=== PATIENT | female | born 1995 | race Caucasian/White ===

== ENCOUNTER 2023-08-15 13:30 | Emergency (ER) | payer MEDICAID ==
[~2023-08-15] VITALS: Ht 157.5 cm; Wt 52.7 kg
[2023-08-15 13:53] VITALS: TEMP 98.3
[2023-08-15 14:26] LABS: BILIRUBIN,URINE NEGATIVE (Neg); CLARITY,URINE CLEAR (Clear); COLOR,URINE YELLOW (Yellow); GLUCOSE, URINE NEGATIVE (Neg); KETONES,URINE NEGATIVE (Neg); LEUKOCYTE ESTERASE ,URINE NEGATIVE (Neg); NITRITES, URINE NEGATIVE (Neg); OCCULT BLOOD,URINE NEGATIVE (Neg); PROTEIN,URINE NEGATIVE (Neg); UROBILINOGEN,URINE 0.2 E.U/dL (0.2-1.0)
[2023-08-15 14:30] LABS: URINE HCG NEGATIVE (NEG)
[2023-08-15 14:31] LABS: BASOPHILS # (AUTO) 0.1 X10'3 (0-0.2); BASOPHILS % (AUTO) 0.8 % (0-1); EOSINOPHILS # (AUTO) 0.7 X10'3 (0-0.9); EOSINOPHILS % (AUTO) 8.1 % (0-6); HEMATOCRIT 43.4 % (35.0-45.0); HEMOGLOBIN 14.5 g/dl (12.0-16.0); LYMPHOCYTES # (AUTO) 2.7 X10'3 (1.1-4.8); LYMPHOCYTES % (AUTO) 32.8 % (21-51); MEAN CORPUSCULAR HEMOGLOBIN 27.3 PG (27.0-31.0); MEAN CORPUSCULAR HGB CONC 33.3 g/dL (33.0-36.5); MEAN PLATELET VOLUME 7.5 FL (7.4-10.4); MONOCYTES # (AUTO) 0.6 X10'3 (0-0.9); NEUTROPHILS # (AUTO) 4.1 X10'3 (1.8-7.7); NEUTROPHILS % (AUTO) 50.3 % (42-75); PLATELET COUNT 249 X10'3 (140-440); RED BLOOD COUNT 5.29 X10'6 (4.20-5.60); RED CELL DISTRIBUTION WIDTH 13.6 % (11.5-14.5); WHITE BLOOD COUNT 8.1 X10'3 (4.5-11.0)
[2023-08-15 14:32] LABS: UA COLLECTION TYPE CLN CATCH MIDSTREAM
[2023-08-15 14:49] LABS: ALANINE AMINOTRANSFERASE 22 U/L (12-78); ALBUMIN 4.2 G/DL (3.4-5.0); ALBUMIN/GLOBULIN RATIO 1.1 (1.1-1.5); ALKALINE PHOSPHATASE 53 IU/L (46-116); ANION GAP 5 (8-16); ASPARTATE AMINO TRANSFERASE 12 U/L (10-37); BILIRUBIN,TOTAL 0.6 MG/DL (0.1-1.0); BLOOD UREA NITROGEN 9 MG/DL (7-18); BUN/CREATININE RATIO 14.1 (10.0-20.0); CALCIUM 8.9 MG/DL (8.5-10.1); CHLORIDE 104 MMOL/L (99-107); CREATININE 0.64 MG/DL (0.40-0.90); GLUCOSE 79 MG/DL (70-104); LIPASE 37 U/L (16-77); POTASSIUM 3.1 MMOL/L (3.5-5.1); SODIUM 141 MMOL/L (135-145); TOTAL CARBON DIOXIDE 31.6 MMOL/L (24-32); TOTAL PROTEIN 8.1 G/DL (6.4-8.2); eCRCL 103 ML/MIN; eGFR > 90 ML/MIN
[2023-08-15] MEDS: cyclobenzaprine 10mg tablet PO ONE (18:00)
[2023-08-15] MEDS: ketorolac tromethamine 15mg/ml inj. IM ONE (18:01)
[2023-08-15 18:09] VITALS: BP 109/69; PULSE 53; RESP 16; O2SAT 100
== END 2023-08-15 18:24 | disposition home or self-care (01) ==
LOC: ER 13:30
DX: N83.209 Unspecified ovarian cyst, unspecified side (principal); R10.32 Left lower quadrant pain; R11.0 Nausea
CPT/HCPCS: 36415; 76856; 80053; 81003; 81025; 83690; 85025; 93976; 96372; 99285; J1885